=== PATIENT | female | born 1945 | race Caucasian/White ===

== ENCOUNTER 2024-08-22 13:37 | Emergency (ER) | payer MEDICARE ==
[~2024-08-22] VITALS: Ht 167.6 cm; Wt 47.6 kg
[2024-08-22] MEDS ORDERED: IBUP-1955 PO (16:54)
[2024-08-22 17:21] VITALS: BP 119/61; TEMP 98.2; O2SAT 99
== END 2024-08-22 17:22 | disposition home or self-care (01) ==
LOC: ER 13:44
DX: S86.111A Strain of other muscle(s) and tendon(s) of posterior muscle group at lower leg level, right leg, initial encounter (principal); E78.5 Hyperlipidemia, unspecified; M79.604 Pain in right leg; X58.XXXA Exposure to other specified factors, initial encounter; Y93.89 Activity, other specified; Y92.89 Other specified places as the place of occurrence of the external cause; Y99.8 Other external cause status
CPT/HCPCS: 93970-TC